=== PATIENT | male | born 1995 | race Caucasian/White ===

== ENCOUNTER 2019-04-25 18:46 | Emergency (ER) | payer SELFPAY ==
[~2019-04-25] VITALS: Ht 188 cm; Wt 113.4 kg
[2019-04-25 19:10] VITALS: BP_SYST 165
[2019-04-25] MEDS ORDERED: METHADONE HCL 10 MG TABLET PO ONE (20:30)
[2019-04-25 20:41] LABS: BASOPHILS # (AUTO) 0.1 K/uL (0.0-0.2); BASOPHILS % (AUTO) 0.8 % (0.0-2.0); EOSINOPHILS # (AUTO) 0.2 K/uL (0.0-0.4); EOSINOPHILS % (AUTO) 1.2 % (0.0-4.0); HEMATOCRIT 46.6 % (36-54); HEMOGLOBIN 15.6 g/dL (14.0-18.0); LYMPHOCYTES # (AUTO) 3.7 K/uL (1.0-5.5); LYMPHOCYTES % (AUTO) 24.9 % (20.5-51.5); MEAN CORPUSCULAR HEMOGLOBIN 31 pg (27-31); MEAN CORPUSCULAR HGB CONC 33 % (32-36); MEAN CORPUSCULAR VOLUME 93 fL (79.0-98.0); MONOCYTES # (AUTO) 1.1 K/uL (0.0-1.0); MONOCYTES % (AUTO) 7.4 % (1.7-9.3); NEUTROPHILS # (AUTO) 9.8 K/uL (1.8-7.7); NEUTROPHILS % (AUTO) 65.7 % (40.0-70.0); PLATELET COUNT (AUTO) 306 K/uL (130-430); RED BLOOD CELL COUNT(AUTO) 5.03 MIL/uL (4.2-6.2); RED CELL DISTRIBUTION WIDTH 14.8 % (9.0-15.0)
[2019-04-25 20:52] LABS: CALCIUM 9.1 mg/dL (8.4-11.0); CREATININE 0.84 mg/dL (0.55-1.30); POTASSIUM 4.1 mmol/L (3.5-5.1)
[2019-04-25 21:04] LABS: ALBUMIN 3.6 g/dL (3.4-4.8); TOTAL BILIRUBIN 0.6 mg/dL (0.0-1.0)
[2019-04-25 22:35] VITALS: BP_SYST 148
== END 2019-04-25 22:35 ==
LOC: SED 18:46
DX: F11.23 Opioid dependence with withdrawal (principal); R10.9 Unspecified abdominal pain
CPT/HCPCS: 36415; 80053; 83690-TC; 85025; 99283